=== PATIENT | male | born 1980 | race Caucasian/White ===

== ENCOUNTER 2017-08-23 08:14 | Inpatient (IN) | payer MEDICARE, MEDICAID ==
[~2017-08-23] VITALS: Ht 180.3 cm; Wt 60.8 kg
[~2017-08-23 08:14] MED LIST: QUET200T PO
[2017-08-23] MEDS ORDERED: IBUP-2070 PO (08:22)
[2017-08-23] MEDS ORDERED: DIPH25 PO (08:22)
[2017-08-23] MEDS ORDERED: HALOPERIDOL 5 MG TABLET PO ONE (08:45)
[2017-08-23] MEDS ORDERED: LORazepam 2 MG TABLET PO ONE (08:45)
[2017-08-23 09:07] LABS: BASOPHILS % (AUTO) 0.4 % (0.0-2.0); EOSINOPHILS % (AUTO) 0.6 % (1.0-6.0); HEMATOCRIT 43.9 % (41-53); LYMPHOCYTES # (AUTO) 1.6 K/uL (1.0-4.8); LYMPHOCYTES % (AUTO) 18.4 % (22.0-44.0); MEAN CORPUSCULAR HEMOGLOBIN 30.6 pg (26.0-34.0); MEAN CORPUSCULAR HGB CONC 34.2 G/dL (31.0-37.0); MEAN CORPUSCULAR VOLUME 89 fL (80-100); MONOCYTES # (AUTO) 0.5 K/uL (0.1-1.0); MONOCYTES % (AUTO) 5.6 % (2.0-9.0); NEUTROPHILS # (AUTO) 6.5 K/uL (1.8-7.7); PLATELET COUNT (AUTO) 207 K/uL (150-450); RED BLOOD CELL COUNT(AUTO) 4.91 MIL/uL (4.50-5.90); RED CELL DISTRIBUTION WIDTH 13.4 % (11.5-14.5)
[2017-08-23 09:21] LABS: ANION GAP 10 mmol/L (8-16); CALCIUM, TOTAL 9.4 mg/dL (8.8-10.5); CARBON DIOXIDE 26 mmol/L (22-29); CHLORIDE 104 mmol/L (98-107); GLOMERULAR FILTR. RATE CALC > 60 mL/min (>60); GLUCOSE,RANDOM 114 mg/dL (70-110); POTASSIUM 3.7 mmol/L (3.5-5.1); SODIUM SERUM 140 mmol/L (136-145); UREA NITROGEN, BLOOD 10 mg/dL (7-18)
[2017-08-23 09:30] LABS: ALANINE AMINOTRANSFERASE 32 U/L (12-78); ALBUMIN 4.1 g/dL (3.4-5.0); ALKALINE PHOSPHATASE 96 U/L (46-116); ASPARTATE AMINOTRANSFERASE 30 U/L (15-37); BILIRUBIN,TOTAL 1.3 mg/dL (0.1-1.0); TOTAL PROTEIN, SERUM 7.8 g/dL (6.4-8.2)
[2017-08-23 10:35] LABS: AMPHET/METH SCREEN,URINE NEGATIVE (NEGATIVE); BARBITURATE SCREEN, URINE NEGATIVE (NEGATIVE); BENZODIAZEPINES SCREEN,URINE NEGATIVE (NEGATIVE); CANNABINOID SCREEN,URINE NEGATIVE (NEGATIVE); COCAINE SCREEN,URINE NEGATIVE (NEGATIVE); METHADONE SCREEN, URINE NEGATIVE (NEGATIVE); OPIATE SCREEN,URINE NEGATIVE (NEGATIVE)
[2017-08-23 10:40] LABS: PHENCYCLIDINE SCREEN,URINE NEGATIVE (NEGATIVE)
[2017-08-23] MEDS ORDERED: PALI39DI IM (20:27)
[2017-08-23] MEDS: ZOLPIDEM TARTRATE 10 MG TABLET PO PRN (21:19)
[2017-08-23] MEDS: LORazepam 2 MG TABLET PO PRN (21:19)
[2017-08-23] MEDS: HALOPERIDOL 5 MG TABLET PO PRN (21:19)
[2017-08-23 21:21] VITALS: BP 117/74
[2017-08-23] MEDS ORDERED: BACITRACIN 28.4 GM OINTMENT TP PRN (21:30)
[2017-08-23] MEDS ORDERED: IBUPROFEN 600 MG TABLET PO PRN (21:30)
[2017-08-23] MEDS ORDERED: ACETAMINOPHEN 325 MG TABLET PO PRN (21:30)
[2017-08-23] MEDS ORDERED: MAGNESIUM HYDROXIDE SUSPENSION 30 ML UDCUP PO PRN (21:30)
[2017-08-23] MEDS ORDERED: ALBUTEROL SULFATE HFA 90 MCG/PUFF 8 GM INHALER IH PRN (21:30)
[2017-08-23] MEDS ORDERED: CloNIDine HCL 0.1 MG TABLET PO PRN (21:30)
[2017-08-23] MEDS ORDERED: LOPERAMIDE HCL 2 MG CAPSULE PO PRN (21:30)
[2017-08-23] MEDS ORDERED: BENZOCAINE/MENTHOL LOZENGE MM PRN (21:30)
[2017-08-23] MEDS ORDERED: MAG HYDROX/AL HYDROX/SIMETH ES 30 ML SUSPENSION UDCUP PO PRN (21:30)
[2017-08-23] MEDS ORDERED: ONDANSETRON HCL 4 MG TABLET PO PRN (21:30)
[2017-08-23] MEDS ORDERED: PETROLATUM,WHITE 71 GM JELLY TP PRN (21:30)
[2017-08-23] MEDS ORDERED: INFLUENZA VIRUS VACCINE QVS 2017-18 (3YR+)/PF 60 MCG/0.5 ML SYRINGE IM ONE (21:45)
[2017-08-24 06:32] VITALS: BP 103/68
[2017-08-24 08:25] VITALS: BP 116/68
[2017-08-24 08:42] LABS: CHOL/HDL RATIO 2.8 (4.2-7.3)
[2017-08-24] MEDS ORDERED: DOCUSATE SODIUM 100 MG CAPSULE PO SCH (09:00)
[2017-08-24] MEDS ORDERED: OMEPRAZOLE 20 MG CAPSULE PO SCH (09:00)
[2017-08-24 16:00] VITALS: BP 117/72
[2017-08-24] MEDS: HALOPERIDOL 5 MG TABLET PO PRN (18:33)
[2017-08-24] MEDS: LORazepam 2 MG TABLET PO PRN (18:33)
[2017-08-24] MEDS: RisperiDONE 3 MG TABLET PO SCH (20:57)
[2017-08-25 06:24] VITALS: BP 105/64
[2017-08-25 08:37] VITALS: BP 108/63
[2017-08-25] MEDS: RisperiDONE 3 MG TABLET PO SCH ×2 (09:07→16:41)
[2017-08-25 16:21] VITALS: BP 104/70
[2017-08-26 05:44] VITALS: BP 112/72
[2017-08-26 08:18] VITALS: BP 124/78
[2017-08-26] MEDS: RisperiDONE 3 MG TABLET PO SCH ×2 (09:42→16:41)
[2017-08-26 16:16] VITALS: BP 106/60
[2017-08-26] MEDS ORDERED: QUET300T2 PO (18:39)
[2017-08-26] MEDS ORDERED: DiphenhydrAMINE HCL 50 MG/ML VIAL IM ONE (18:45)
[2017-08-27 06:43] VITALS: BP 108/69
[2017-08-27 08:30] VITALS: BP 105/65
[2017-08-27] MEDS: RisperiDONE 3 MG TABLET PO SCH ×2 (09:48→16:26)
[2017-08-27] MEDS: BENZTROPINE MESYLATE 1 MG TABLET PO SCH ×2 (09:48→16:26)
[2017-08-27 16:04] VITALS: BP 119/68
[2017-08-28 03:03] VITALS: BP 121/78
[2017-08-28 08:14] VITALS: BP 121/83
[2017-08-28] MEDS: RisperiDONE 3 MG TABLET PO SCH ×2 (08:46→16:49)
[2017-08-28] MEDS: BENZTROPINE MESYLATE 1 MG TABLET PO SCH ×2 (08:46→16:49)
[2017-08-28 16:02] VITALS: BP 133/88
[2017-08-28] MEDS: LORazepam 2 MG TABLET PO PRN (16:49)
[2017-08-29 06:27] VITALS: BP 110/68
[2017-08-29 08:03] VITALS: BP 123/73
[2017-08-29] MEDS: RisperiDONE 3 MG TABLET PO SCH ×2 (08:35→17:45)
[2017-08-29] MEDS: BENZTROPINE MESYLATE 1 MG TABLET PO SCH ×2 (08:35→17:45)
[2017-08-29 16:00] VITALS: BP 120/66
[2017-08-30 01:39] VITALS: BP 128/81
[2017-08-30 08:26] VITALS: BP 119/80
[2017-08-30] MEDS: BENZTROPINE MESYLATE 1 MG TABLET PO SCH ×2 (08:32→17:30)
[2017-08-30] MEDS: RisperiDONE 3 MG TABLET PO SCH ×2 (08:32→17:30)
[2017-08-30 16:00] VITALS: BP 119/80
[2017-08-30] MEDS: LORazepam 2 MG TABLET PO PRN (17:30)
[2017-08-31 05:48] VITALS: BP 117/78
[2017-08-31 08:00] VITALS: BP 117/60
[2017-08-31] MEDS: BENZTROPINE MESYLATE 1 MG TABLET PO SCH ×2 (08:20→17:21)
[2017-08-31] MEDS: LORazepam 2 MG TABLET PO PRN ×2 (08:20→17:21)
[2017-08-31] MEDS: RisperiDONE 3 MG TABLET PO SCH ×2 (08:20→17:21)
[2017-08-31 17:00] VITALS: BP 122/68
[2017-09-01 00:50] VITALS: BP 123/72
[2017-09-01 08:00] VITALS: BP 118/70
[2017-09-01] MEDS: LORazepam 2 MG TABLET PO PRN (08:06)
[2017-09-01] MEDS: BENZTROPINE MESYLATE 1 MG TABLET PO SCH ×2 (08:06→16:27)
[2017-09-01] MEDS: RisperiDONE 3 MG TABLET PO SCH ×2 (08:06→16:27)
[2017-09-01 16:03] VITALS: BP 109/63
[2017-09-02 05:51] VITALS: BP 108/75
[2017-09-02 08:02] VITALS: BP 122/74
[2017-09-02] MEDS: BENZTROPINE MESYLATE 1 MG TABLET PO SCH ×2 (09:24→17:01)
[2017-09-02] MEDS: RisperiDONE 3 MG TABLET PO SCH ×2 (09:25→17:01)
[2017-09-02 16:00] VITALS: BP 110/67
[2017-09-02] MEDS: LORazepam 2 MG TABLET PO PRN (17:01)
[2017-09-02] MEDS: ZOLPIDEM TARTRATE 10 MG TABLET PO PRN (22:28)
[2017-09-03 01:58] VITALS: BP 118/71
[2017-09-03 08:02] VITALS: BP 117/74
[2017-09-03] MEDS: BENZTROPINE MESYLATE 1 MG TABLET PO SCH ×2 (09:08→17:01)
[2017-09-03] MEDS: RisperiDONE 3 MG TABLET PO SCH ×2 (09:08→17:01)
[2017-09-03] MEDS: LORazepam 2 MG TABLET PO PRN ×2 (09:11→17:01)
[2017-09-03 16:00] VITALS: BP 116/74
[2017-09-04 05:12] VITALS: BP 111/68
[2017-09-04 08:08] VITALS: BP 115/75
[2017-09-04] MEDS: RisperiDONE 3 MG TABLET PO SCH ×2 (08:14→17:01)
[2017-09-04] MEDS: BENZTROPINE MESYLATE 1 MG TABLET PO SCH ×2 (08:14→17:01)
[2017-09-04 16:00] VITALS: BP 115/70
[2017-09-04] MEDS: HALOPERIDOL 5 MG TABLET PO PRN (17:01)
[2017-09-04] MEDS: LORazepam 2 MG TABLET PO PRN (17:01)
[2017-09-05 01:01] VITALS: BP 117/72
[2017-09-05 08:00] VITALS: BP 122/79
[2017-09-05] MEDS: BENZTROPINE MESYLATE 1 MG TABLET PO SCH ×2 (08:22→16:23)
[2017-09-05] MEDS: RisperiDONE 3 MG TABLET PO SCH ×2 (08:22→16:23)
[2017-09-05 16:00] VITALS: BP 114/67
[2017-09-06 00:11] VITALS: BP 118/71
[2017-09-06 08:02] VITALS: BP 125/79
[2017-09-06] MEDS: LORazepam 2 MG TABLET PO PRN ×2 (09:48→17:07)
[2017-09-06] MEDS: BENZTROPINE MESYLATE 1 MG TABLET PO SCH ×2 (09:48→17:07)
[2017-09-06] MEDS: RisperiDONE 3 MG TABLET PO SCH ×2 (09:48→17:07)
[2017-09-06 16:00] VITALS: BP 114/65
[2017-09-07 01:09] VITALS: BP 108/69
[2017-09-07 08:04] VITALS: BP 114/62
[2017-09-07] MEDS: BENZTROPINE MESYLATE 1 MG TABLET PO SCH ×2 (08:40→17:25)
[2017-09-07] MEDS: RisperiDONE 3 MG TABLET PO SCH ×2 (08:40→17:25)
[2017-09-07] MEDS ORDERED: OMEGA-3/DHA/EPA/FISH OIL 1,000 MG CAPSULE PO SCH (09:00)
[2017-09-07] MEDS ORDERED: PALIPERIDONE PALMITATE 234 MG/1.5 ML SYRINGE IM SCH (09:00)
[2017-09-07 16:00] VITALS: BP 110/66
[2017-09-07] MEDS ORDERED: RISP3TAB44 PO (16:52)
[2017-09-07] MEDS ORDERED: BENZ1TAB10 PO (16:52)
[2017-09-07] MEDS ORDERED: OMEG-135 PO (16:52)
[2017-09-07] MEDS ORDERED: PALI234D IM (16:55)
== END 2017-09-07 18:50 | disposition home or self-care (01) | DRG 885 ==
LOC: EMS 08:17 → B3A 20:00
PROVIDERS: ADMIT Psychiatry & Neurology Psychiatry; ATTEND Psychiatry & Neurology Psychiatry
PROC: 3E0234Z Introduction of Serum, Toxoid and Vaccine into Muscle, Percutaneous Approach (ICD-10-PCS; principal; 2017-08-23)
DX: F20.0 Paranoid schizophrenia (principal); Z59.0 Homelessness; E78.1 Pure hyperglyceridemia; E78.5 Hyperlipidemia, unspecified; F10.10 Alcohol abuse, uncomplicated; F15.10 Other stimulant abuse, uncomplicated; F17.200 Nicotine dependence, unspecified, uncomplicated; G47.00 Insomnia, unspecified; F41.9 Anxiety disorder, unspecified; J02.9 Acute pharyngitis, unspecified; Z79.899 Other long term (current) drug therapy; Z91.018 Allergy to other foods; Z23 Encounter for immunization
CPT/HCPCS: 99285; G0480; J1200